=== PATIENT | female | born 1990 | race Caucasian/White ===

== ENCOUNTER 2018-05-21 06:53 | Emergency (ER) | payer OTHER, SELFPAY ==
[2018-05-21 07:49] LABS: Urine Blood 1+ (NEG); Urine Glucose NEGATIVE (NEG); Urine Protein TRACE (NEG); Urine Specific Gravity 1.015 (1.005-1.030); Urine pH 5.5 (5.0-7.0)
--- NOTE | 2018-05-21 08:30 | ER ---
Nurse's Notes [facility] Name: Chelita Jara Age: 28 yrs Sex: Female : 1990 Arrival Date: 05/21/2018 Time: 06:54 Bed 16 Private MD: Diagnosis: Influenza due to identified novel influenza A virus;Dehydration Presentation: 05/21 07:12 Presenting complaint: Headache, nonproductive cough, sore throat, body aches, and fever hb x 3 days. TMAX 101.7. Transition of care: patient was not received from another setting of care. Onset of symptoms was May 19, 2018. Risk Assessment: Do you want to hurt yourself or someone else? Patient reports no desire to harm self or others. Care prior to arrival: None. 07:12 Method Of Arrival: Ambulatory hb 07:12 Acuity: MANISHA 4 hb 07:50 Initial Sepsis Screen: Does the patient meet any 2 criteria? No. Patient's initial ls4 sepsis screen is negative. Does the patient have a suspected source of infection? No. Patient's initial sepsis screen is negative. Triage Assessment: 07:48 General: Appears uncomfortable, Behavior is cooperative. Pain: Pain currently is 7 out ls4 of 10 on a pain scale. Quality of pain is described as aching, ACHING ALL OVER. Neuro: No deficits noted. Cardiovascular: No deficits noted. Respiratory: No deficits noted. GI: No deficits noted. Derm: No deficits noted. Musculoskeletal: No deficits noted. 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 - Social history:: Smoking status: Patient uses tobacco products, smokes one-half pack cigarettes per day. - Ebola Screening: : No symptoms or risks identified at this time. - Family history:: not pertinent. - Hospitalizations: : No recent hospitalization is reported. Screenin:49 Abuse screen: Denies threats or abuse. Denies injuries from another. Nutritional ls4 screening: No deficits noted. Tuberculosis screening: No symptoms or risk factors identified. Fall Risk None identified. Assessment: 07:49 General: SEE TRIAGE ASSESSMENT . ls4 Vital Signs: 07:11 BP 132 / 71; Pulse 122; Resp 16; Temp 98.2(TE); Pulse Ox 97% on R/A; Weight 90.72 kg; hb Height 5 ft. 7 in. (170.18 cm); Pain 7/10; 09:10 BP 128 / 74; Pulse 88; Resp 16; Temp 98.4(O); Pulse Ox 98% on R/A; Pain 5/10; ls4 07:11 Body Mass Index 31.32 (90.72 kg, 170.18 cm) hb ED Course: 06:54 Patient arrived in ED. ds1 07:12 Triage completed. hb 07:13 Arm band placed on. hb 07:14 Armani Hughes MD is Attending Physician. rn 07:31 Patience Otero, RN is Primary Nurse. ls4 07:49 Patient has correct armband on for positive identification. Bed in low position. Call ls4 light in reach. Side rails up X 1. Warm blanket given. 07:49 No provider procedures requiring assistance completed. Flu and/or RSV swab sent to lab. ls4 Strep swab sent to lab. 08:20 Inserted saline lock: 20 gauge in right antecubital area, using aseptic technique. ls4 08:52 Throat Culture Sent. ls4 09:38 IV discontinued, intact, bleeding controlled, No redness/swelling at site. Pressure ls4 dressing applied. Administered Medications: 08:29 Drug: NS 0.9% 1000 ml Route: IV; Rate: 1000 ml; Site: right antecubital; ls4 09:15 Follow up: IV Status: Completed infusion; IV Intake: 1000ml ls4 Intake: 09:15 IV: 1000ml; Total: 1000ml. ls4 Outcome: 08:26 Discharge ordered by . rn 09:37 Discharged to home ambulatory, with family. ls4 09:37 Condition: stable 09:37 Discharge instructions given to patient, family, Instructed on discharge instructions, follow up and referral plans. medication usage, safety practices, Demonstrated understanding of instructions, follow-up care, medications. 09:38 Patient left the ED. ls4 Signatures: Sherrell Williamson ds1 Armani Hughes MD MD rn Baxter, Heather, RN RN Patience Otero RN RN ls4 Corrections: (The following items were deleted from the chart) 07:55 07:12 Acuity: MANISHA 3 hb hb
--- NOTE | 2018-05-21 08:30 | EDPHYS ---
Physician Documentation [facility] Name: Chelita Jara Age: 28 yrs Sex: Female : 1990 Arrival Date: 05/21/2018 Time: 06:54 Bed 16 Private MD: ED Physician Armani Hughes HPI: 05/21 07:23 This 28 yrs old Female presents to ER via Ambulatory with complaints of rn Fever, Body Aches. 07:23 The patient reports fever, that was measured at 102 degrees Fahrenheit. Onset: The rn symptoms/episode began/occurred 3 day(s) ago. Modifying factors: there are no obvious modifying factors. Associated signs and symptoms: Pertinent positives: chills, cough, myalgias, runny nose, sore throat. Severity of symptoms: At their worst the symptoms were mild in the emergency department the symptoms are unchanged. The patient has not experienced similar symptoms in the past. The patient has not recently seen a physician. 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 - Social history:: Smoking status: Patient uses tobacco products, smokes one-half pack cigarettes per day. - Ebola Screening: : No symptoms or risks identified at this time. - Family history:: not pertinent. - Hospitalizations: : No recent hospitalization is reported. 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 Exam: 07:23 Constitutional: This is a well developed, well nourished patient who is awake, alert, rn and in no acute distress. Head/Face: Normocephalic, atraumatic. Eyes: Pupils equal round and reactive to light, extra-ocular motions intact. Lids and lashes normal. Conjunctiva and sclera are non-icteric and not injected. Cornea within normal limits. Periorbital areas with no swelling, redness, or edema. ENT: mild pharyngeal erythema, no stridor, no exudate Neck: Trachea midline, no thyromegaly or masses palpated, and no cervical lymphadenopathy. Supple, full range of motion without nuchal rigidity, or vertebral point tenderness. No Meningismus. Cardiovascular: Regular rate and rhythm, No pulse deficits. Respiratory: Lungs have equal breath sounds bilaterally, clear to auscultation, No increased work of breathing, no retractions or nasal flaring. Abdomen/GI: soft, non-tender MS/ Extremity: Pulses equal, no cyanosis. Neurovascular intact. Full, normal range of motion. Equal circumference. Neuro: Awake and alert, GCS 15, oriented to person, place, time, and situation. Cranial nerves II-XII grossly intact. Motor strength 5/5 in all extremities. Sensory grossly intact. Cerebellar exam normal. Normal gait. Vital Signs: 07:11 BP 132 / 71; Pulse 122; Resp 16; Temp 98.2(TE); Pulse Ox 97% on R/A; Weight 90.72 kg; hb Height 5 ft. 7 in. (170.18 cm); Pain 7/10; 09:10 BP 128 / 74; Pulse 88; Resp 16; Temp 98.4(O); Pulse Ox 98% on R/A; Pain 5/10; ls4 07:11 Body Mass Index 31.32 (90.72 kg, 170.18 cm) hb MDM: 07:14 Patient medically screened. rn 08:24 Differential diagnosis: viral Infection, bacterial infection, URI, UTI. Data reviewed: rn vital signs, nurses notes, lab test result(s), and as a result, I will discharge patient. Counseling: I had a detailed discussion with the patient and/or guardian regarding: the historical points, exam findings, and any diagnostic results supporting the discharge/admit diagnosis, lab results, the need for outpatient follow up, to return to the emergency department if symptoms worsen or persist or if there are any questions or concerns that arise at home. Special discussion: I discussed with the patient/guardian in detail that at this point there is no indication for admission to the hospital. It is understood, however, that if the symptoms persist or worsen the patient needs to return immediately for re-evaluation. ED course: Pt with flu, given fluids for dehydration, no oxygen requirement, no signs of flu pneumonia, 3 days of symptoms, after discussion with patient, likely no help from tamiflu, will dc home with OTC meds and return precautions.. 05/21 07:23 Order name: Flu rn 05/21 07:23 Order name: Strep rn 05/21 07:37 Order name: Urine Dipstick--Ancillary (enter results); Complete Time: 08:12 eb 05/21 07:37 Order name: Urine --Ancillary (enter results); Complete Time: 08:12 05/21 08:11 Order name: Throat Culture [facility] 05/21 07:23 Order name: Urine Dipstick-Ancillary (obtain specimen); Complete Time: 07:47 rn 05/21 07:23 Order name: Urine Test (obtain specimen); Complete Time: 07:47 rn 05/21 08:12 Order name: IV Start; Complete Time: 08:52 rn Administered Medications: 08:29 Drug: NS 0.9% 1000 ml Route: IV; Rate: 1000 ml; Site: right antecubital; ls4 09:15 Follow up: IV Status: Completed infusion; IV Intake: 1000ml ls4 Disposition: 05/21/18 08:26 Discharged to Home. Impression: Influenza due to identified novel influenza A virus, Dehydration. - Condition is Stable. - Discharge Instructions: Influenza, Adult. - Medication Reconciliation Form, Thank You Letter, Antibiotic Education, Prescription Opioid Use, Work release form form. - Follow up: Private Physician; When: As needed; Reason: Recheck today's complaints, Re-evaluation by your physician. - Problem is new. - Symptoms have improved. Signatures: Dispatcher [employer] [facility] Armani Hughes MD MD rn Baxter, Heather, RN RN hb Stewart, Lisa, RN RN ls4 Corrections: (The following items were deleted from the chart) 09:05 08:26 05/21/2018 08:26 Discharged to Home. Impression: Influenza due to identified ls4 novel influenza A virus; Dehydration. Condition is Stable. Forms are Medication Reconciliation Form, Thank You Letter, Antibiotic Education, Prescription Opioid Use. Follow up: Private Physician; When: As needed; Reason: Recheck today's complaints, Re-evaluation by your physician. Problem is new. Symptoms have improved. rn 09:38 09:05 05/21/2018 08:26 Discharged to Home. Impression: Influenza due to identified ls4 novel influenza A virus; Dehydration. Condition is Stable. Discharge Instructions: Influenza, Adult. Forms are Medication Reconciliation Form, Thank You Letter, Antibiotic Education, Prescription Opioid Use. Follow up: Private Physician; When: As needed; Reason: Recheck today's complaints, Re-evaluation by your physician. Problem is new. Symptoms have improved. ls4
[2018-05-21] MEDS ORDERED: NA CHLORIDE 0.9% 1,000 ML ONE (08:40)
== END 2018-05-21 09:38 | disposition home or self-care (01) ==
LOC: ER 06:53
DX: J11.1 Influenza due to unidentified influenza virus with other respiratory manifestations (principal); E86.0 Dehydration; F17.210 Nicotine dependence, cigarettes, uncomplicated
CPT/HCPCS: 81003; 81025; 87070; 87081; 87804; 96360; 99283; J7030